=== PATIENT | female | born 1955 ===

== ENCOUNTER 2017-06-23 09:02 | Day surgery (SDC) | payer MEDICARE, OTHER, BC ==
[2017-06-23] VITALS (10 sets, daily range): BP systolic 94–109; BP diastolic 57–67
[~2017-06-23] VITALS: Ht 162.6 cm; Wt 49.0 kg
[2017-06-23] MEDS ORDERED: VITAMIN D1000 UNI1 ORAL (09:30)
[2017-06-23] MEDS ORDERED: LEVOXYL25 MCG ORAL (09:30)
[2017-06-23] MEDS ORDERED: ALIGN4 M1 PO (09:30)
[2017-06-23] MEDS ORDERED: Betadine 10% Oint 15gm TOPIC ONE (10:00)
[2017-06-23] MEDS ORDERED: Kenalog-40 1ml Vial ONE (10:00)
[2017-06-23] MEDS ORDERED: Cocaine HCl 4% 4ml vial TOPIC ONE (10:00)
[2017-06-23] MEDS ORDERED: Bacitracin Oint 15gm Tube TOPIC ONE (10:01)
[2017-06-23] MEDS ORDERED: Oxymetazoline 0.05% Na Spray 30ml NASAL ONE (10:01)
[2017-06-23] MEDS ORDERED: Lidocaine 1% 10mg/ml/EPI 0.01mg/ml 50ml INJ ONE (10:15)
[2017-06-23] MEDS ORDERED: LR 1000ml ONE (11:15)
[2017-06-23] MEDS ORDERED: Zemuron 50mg/5ml Inj IV ONE (11:15)
[2017-06-23] MEDS ORDERED: fentaNYL 100 mcg/2 mL IV ONE (11:15)
[2017-06-23] MEDS ORDERED: Glycopyrrolate 0.2mg/ml 1ml Vial ONE (11:15)
[2017-06-23] MEDS ORDERED: Succinylcholine 20mg/ml 10ml vial ONE (11:15)
[2017-06-23] MEDS ORDERED: Propofol 200mg/20ml IV ONE (11:15)
[2017-06-23] MEDS ORDERED: Midazolam 2mg/2ml Inj ONE (11:15)
[2017-06-23] MEDS ORDERED: NS Irrig 1000ml ONE (11:15)
[2017-06-23] MEDS ORDERED: Propofol 1,000mg/ 100ml btl IV ONE (11:15)
--- NOTE | 2017-06-23 11:30 | Pre-Procedure Note/Attestation ---
Pre-Procedure Note/Attestation Complete Prior to Procedure Planned Procedure: not applicable Procedure Narrative: nasal obstruction unresponisve to medication Indications for Procedure Pre-Operative Diagnosis: septal deviation, bilateral hypertrophied inferior turbinates, septal perforation, collapsed left internal valve Attestation I attest that I discussed the nature of the procedure; its benefits; risks and complications; and alternatives (and the risks and benefits of such alternatives ), prior to the procedure, with the patient (or the patient's legal technical sales representatives). I attest that, if there was a reasonable possibility of needing a blood transfusion, the patient (or the patient's legal technical sales representatives) was given the [place] [facility] standardized written summary, pursuant to the [place] Blood Safety Act ([place] Health and Safety Code # 1645, as amended). I attest that I re-evaluated the patient just prior to the surgery and that there has been no change in the patient's H&P, except as documented below: RAJINDER ORO Jun 23, 2017 11:30
--- NOTE | 2017-06-23 12:52 | Anethesia Preoperative Eval ---
Anesthesia Pre-op PMH/ROS General Date of Evaluation: Jun 23, 2017 Time of Evaluation: 11:15 Anesthesiologist: FREDIS ASA Score: ASA 2 Mallampati Score Class I : Soft palate, uvula, fauces, pillars visible Class II: Soft palate, uvula, fauces visible Class III: Soft palate, base of uvula visible Class IV: Only hard plate visible Mallampati Classification: Class II Surgeon: SHORTY Diagnosis: SEPTAL DVIATION Surgical Procedure: MR TURBS Anesthesia History: none Family History: no anesthesia problems Allergies: Coded Allergies: CEPHALOSPORINS (Verified Allergy, Severe, 06/23/17) hives EZETIMIBE (Verified Allergy, Severe, 06/23/17) muscle spasms LATEX (Verified Allergy, Severe, 06/23/17) blisters METOCLOPRAMIDE (Verified Allergy, Severe, 06/23/17) nausea and vomiting NYSTATIN (Verified Allergy, Severe, 06/23/17) blisters in the mouth ROSUVASTATIN (Verified Allergy, Severe, 06/23/17) muscle spasms SULFA (SULFONAMIDE ANTIBIOTICS) (Verified Allergy, Severe, 06/23/17) melendez/blister SUMATRIPTAN (Verified Allergy, Severe, 06/23/17) hemmorhaging TRAZODONE (Verified Allergy, Severe, 06/23/17) migraine, headache BENZOIN (Verified Adverse Reaction, Severe, 06/23/17) 3rd degree melendez Past Medical History Cardiovascular: Reports: HTN Anesthesia Pre-op Phys. Exam Physician Exam Last Vital Signs Date Time Temp Pulse Resp B/P (MAP) Pulse Ox O2 Delivery O2 Flow Rate FiO2 06/23/17 09:48 98.8 85 17 109/65 99 Room Air Constitutional: NAD Neurologic: CN 2-12 intact Cardiovascular: RRR Respiratory: CTA Airway Exam Mallampati Score: Class II MO: full ROM: full Teeth: intact Anesthesia Pre-op A/P Risk Assessment & Plan Plan: GA Pre-Antibiotics Given Within 1 Hr of Incision: Yes Time Given: 11:50 Jacob Sampson M.D. Jun 23, 2017 12:52
--- NOTE | 2017-06-23 12:54 | Immediate Post-Op Evaluation ---
Immediate Post-Op Evalulation Immediate Post-Op Evalulation Procedure: SEPTOPLASTY Date of Evaluation: Jun 23, 2017 Time of Evaluation: 15:00 IV Fluids: 1000 Blood Products: 0 Estimated Blood Loss: 0 Urinary Output: 0 Blood Pressure Systolic: 121 Blood Pressure Diastolic: 73 Pulse Rate: 61 Respiratory Rate: 16 O2 Sat by Pulse Oximetry: 99 Temperature (Fahrenheit): 98 Pain Score (1-10): 0 Nausea: No Vomiting: No Patient Status: awake, reacts, patent, extubated Given Within 1 Hr of Incision: Yes Time Given: 11:50 Jacob Sampson M.D. Jun 23, 2017 12:54
[2017-06-23] MEDS ORDERED: NS Irrig 1000ml IRRIG ONE (12:55)
--- NOTE | 2017-06-23 12:55 | 48 Hour Post Anesthesia Eval ---
Post Anesthesia Evaluation Procedure: SEPTOPLASTY Date of Evaluation: Jun 25, 2017 Time of Evaluation: 12:00 Blood Pressure Systolic: 131 0: 61 Pulse Rate: 63 Respiratory Rate: 18 Temperature (Fahrenheit): 98 O2 Sat by Pulse Oximetry: 99 Airway: patent Nausea: No Vomiting: No Pain Intensity: 0 Hydration Status: adequate Mental Status/LOC: patient returned to baseline Follow-up care needed: patient intructions given Jacob Sampson M.D. Jun 23, 2017 12:55
[2017-06-23] MEDS ORDERED: LR 1000ml 1,000 ML IVLG SCH (12:56)
[2017-06-23] MEDS ORDERED: Ketorolac 30mg Inj IV PRN (13:00)
[2017-06-23] MEDS ORDERED: Metoclopramide 10mg/2ml Inj IVP PRN (13:00)
[2017-06-23] MEDS ORDERED: Morphine Sulfate 2mg/ml Inj IVP PRN (13:00)
[2017-06-23] MEDS ORDERED: fentaNYL 100 mcg/2 mL IV PRN (13:00)
[2017-06-23] MEDS ORDERED: Acetaminophen (Non formulary) 100 ML IV ONE (14:00)
--- NOTE | 2017-06-23 14:09 | Brief Operative Note ---
Immediate Post Operative Note Operative Note Pre-op Diagnosis: septal deviation, bilateral hypertrophied inferior turbinates, septal perforation, collapsed left internal valve Procedure: septoplasty, bilatreral inferior turbinectomies, repair of collapsed left internal valve with rotation advancement flap Post-op Diagnosis: same as pre-op Surgeon: Ko Oro M.D Anesthesiologist: Jacob bell M.D. Anesthesia: general Specimen: none Complications: none Condition: stable Fluids: ringers lactate Estimated Blood Loss: minimal Drains: none Packing: [email or web address] Implant(s) used?: No KO ORO Jun 23, 2017 14:09
--- NOTE | 2017-06-27 08:30 | Operative Note - Dictated ---
DATE OF OPERATION: 06/23/2017 SURGEON: Ko Bingham M.D. ANESTHESIOLOGIST: Jacob Sampson M.D. ANESTHESIA: General. PREOPERATIVE DIAGNOSES: 1. Septal deviation. 2. Hypertrophied inferior turbinates. 3. Septal perforation. 4. Collapsed left internal valve. POSTOPERATIVE DIAGNOSES: 1. Septal deviation. 2. Hypertrophied inferior turbinates. 3. Septal perforation. 4. Collapsed left internal valve. PROCEDURES: 1. Septoplasty. 2. Repair of collapsed left internal valve with lateral rotation advancement flap. 3. Bilateral inferior turbinectomies. INDICATION FOR SURGERY: The patient is a 62-year-old female, who complains of left nasal obstruction despite medical treatment. She is known to have a septal perforation and is experiencing multiple nasal and sinus infections from her nasal obstruction, inability to clear the nasal cavity, and abnormal ventilation. She is now being brought to the operating room for surgical repair. PROCEDURE AND FINDINGS: The patient was brought to the operating room while premedicated and had received preoperative antibiotics. She was then placed in supine position on the operating room table. After the patient underwent satisfactory endotracheal intubation, she was given IV sedation. The intranasal cavity was sterilized using sterile Q-tip saturated with Betadine. Approximately 6 mL of 1% Xylocaine with 1:100,000 epinephrine were used to inject the left side of the nose and septal region. The nasal cavity was then packed with sterile gauze saturated less than 200 mg of cocaine. The patient was then prepped and draped in usual sterile fashion. Prior to injection, examination revealed a left anterior inferior septal deviation. The left internal valve was found to be collapsed as well as blocked at its junction with the septum. Further examination revealed significant bilateral hypertrophied inferior turbinates with no evidence of infection. With the area again prepped with Betadine solution, a #15 blade was used to make an incision just inferior to the collapse left side of the internal valve, carried up to the anterior aspect of the internal valve, then along the inferior aspect of the septum. A left mucoperichondrial flap was then elevated running into significant scar tissue. The overlying soft tissue above the internal valve was eventually freed running into very dense scar tissue. Examination revealed that the left lower lateral cartilage had been severed at the dome area. The cartilage laterally was found to be intact. There was significant amount of scar tissue, which I felt was depressing the lower lateral cartilage and adding significantly to her nasal obstruction. This was taken down with sharp dissection and all bleeding was controlled with cautery. Examination of the area, with the cartilage and mucosa placed back in position, revealed that the left upper lateral collapse was now in an non obstructing position, but there was still bunting anteriorly. A left inferior septal incision was made and carried up to the i nferior aspect of he internal valve. Next, a mucoperichondrium flap was elevated running into significant scar tissue. A #15 blade was then used to make an incision anterior, inferior and posterior to the area of the blunted internal valve septal complex. Any remaining attachments were freed and the entire flap was then rotated anteriorly and laterally alleviating the obstruction. This was then sewn in place with interrupted sutures of 5-0 Plain.. There was an area of deviated septum below the dorsum and from the septal perforation, which was able to be crosshatched and mobilized in more midline physiologic position for breathing. Re-examination now revealed a much improved left nasal inflow tract except for the hypertrophied inferior turbinates bilaterally. This was reduced with bilateral intramural coagulation. Re-examination now revealed the patient with a good bilateral nasal airway. The pocket, which had been created over the left lower and upper lateral cartilage was then rinsed with Betadine solution. 5-0 pLain was used to approximate the split left lateral dome. Approximately 0.2 to 0.3 mL of 40 mg of Kenalog was then placed in the pocket to decrease scar tissue postoperatively. The flap was then placed in position using a [place] elevator It was then sewn in place using interrupted sutures of 4-0 plain. The inferior septal incision was closed with interrupted sutures of 4-0 plain as well as the left internal valve incision.. A bolster consisting of 5-0 Prolene over the rolled-up cotton was placed in 2 positions to help collapse the space of the left lower lateral cartilage and upper lateral cartilage pocket. The intranasal packing was removed and all blood suctioned from the nasal cavity. Telfa-coated bacitracin ointment was secured with a suture of 3-0 silk. The 3-0 silk was secured to the dorsum of the nose with Steri-Strips. This having been accomplished, the procedure was terminated. The patient tolerated the procedure well and left the operating room in satisfactory condition. Estimated blood loss was 20 mL. Sponge and needle count were correct. Ko Miriam Bingham DR: MORAIMA JOB#: [id number] CC: SHARONDA
== END 2017-06-23 15:45 | disposition home or self-care (01) ==
LOC: SUR 09:02
DX: J34.2 Deviated nasal septum (principal); J34.3 Hypertrophy of nasal turbinates; J34.89 Other specified disorders of nose and nasal sinuses; J32.9 Chronic sinusitis, unspecified; Z88.2 Allergy status to sulfonamides; Z91.040 Latex allergy status; Z88.8 Allergy status to other drugs, medicaments and biological substances; M81.0 Age-related osteoporosis without current pathological fracture; E78.5 Hyperlipidemia, unspecified; Z85.3 Personal history of malignant neoplasm of breast; Z90.11 Acquired absence of right breast and nipple; I10 Essential (primary) hypertension
CPT/HCPCS: 30140; 30520; J0330; J0690; J2250; J2704; J3010; J3301; J7120; 94003; 94150